=== PATIENT | male | born 1995 | race Caucasian/White ===

== ENCOUNTER 2021-05-01 16:58 | Emergency (ER) | payer OTHER ==
[2021-05-01 17:26] VITALS: BP 133/74; PULSE 77; TEMP 98.7; BMI 18.5
[2021-05-01] MEDS ORDERED: IBUPROFEN 400 MG TABLET (FP) PO ONE ×2 (18:01→18:11)
[2021-05-01] MEDS ORDERED: IBUPROFEN 600 MG TABLET (FP) PO ONE (18:04)
[2021-05-01] MEDS ORDERED: IBUPROFEN 100 MG/5 ML UNIT DOSE CUPS ONE (18:13)
== END 2021-05-01 19:27 | disposition home or self-care (01) ==
LOC: JERFT 16:58 → JER 16:58 → JERFT 19:27
DX: M25.561 Pain in right knee (principal)
CPT/HCPCS: 99284-25

== ENCOUNTER 2024-01-10 19:34 | Emergency (ER) | payer SELFPAY ==
[2024-01-10 19:44] VITALS: BP 130/83; PULSE 81; RESP 18; TEMP 98.2; BMI 23.6
[2024-01-10] MEDS ORDERED: AMOX TR/POT CLAV 875MG/125MG TABLETS (FP) ONE (21:01)
[2024-01-10] MEDS ORDERED: IBUPROFEN 600 MG TABLET (FP) PO ONE (21:01)
[2024-01-10] MEDS: IBUPROFEN 600 MG TABLET (FP) PO ONE (21:02)
[2024-01-10] MEDS: AMOX TR/POT CLAV 875MG/125MG TABLETS (FP) PO ONE (21:02)
== END 2024-01-10 21:05 | disposition home or self-care (01) ==
LOC: JERFT 19:34
DX: K08.89 Other specified disorders of teeth and supporting structures (principal); K02.9 Dental caries, unspecified
CPT/HCPCS: 99283-25